=== PATIENT | male | born 1985 | race Caucasian/White ===

== ENCOUNTER 2023-07-09 19:00 | Emergency (ER) | payer OTHER, SELFPAY ==
[2023-07-09 19:34] VITALS: BP 135/88; PULSE 76; RESP 18; TEMP 37.1; O2SAT 97; BMI 30.2
--- NOTE | 2023-07-09 19:35 | ED_ITS ---
HPI - General Adult General Chief complaint: Skin/Abscess/Foreign Body Stated complaint: Finger swelling Time Seen by Provider: 07/09/23 19:35 Source: patient Mode of arrival: ambulatory Limitations: no limitations History of Present Illness HPI narrative: 37-year-old male previously healthy [id number] here with complaints of swelling, redness and drainage from the right hand 4th digit x 5-6 days. Unknown injury or trauma. Related Data Previous Rx's Medication Instructions Recorded cephalexin 500 mg capsule 500 mg PO TID #21 caps 07/09/23 Allergies Allergy/AdvReac Type Severity Reaction Status Date / Time No Known Allergies Allergy Unknown Unverified 03/25/20 15:32 Review of Systems Review of Systems: Yes all other systems are reviewed and are negative Constitutional: Constitutional: Reports no additional constitutional complaints, Denies body ache(s), Denies chills, Denies fever(s), Denies headache(s) and Denies weakness Eyes: Eyes: Reports no additional eye complaints and Denies change in vision ENT: Reports system reviewed and no additional complaints, except as document ed, Denies dizziness, Denies headache(s), Denies nasal congestion, Denies nasal discharge and Denies neck pain Cardiovascular: Cardiovascular: Reports no additional cardiovascular complaints, Denies chest pain, Denies leg edema and Denies dyspnea Respiratory: Respiratory: Reports no additional respiratory complaints, Denies cough and Denies dyspnea Gastrointestinal: Gastrointestinal: Reports no additional gastrointestinal complaints, Denies abdominal pain, Denies diarrhea, Denies nausea and Denies vomiting Genitourinary: Genitourinary: Denies urinary incontinence Musculoskeletal: Musculoskeletal: Reports no additional musculoskeletal complaints, Denies back pain, Denies arthralgias, Denies joint swelling, Denies neck pain, Denies numbness and Denies tingling Integumentary/Breasts: Skin/Breast: Reports system reviewed and no additional complaints, except as docu, Reports swelling, Reports erythema and Denies rash Neurologic: Reports system reviewed and no additional complaints, except as documented, Denies Abnormal speech present, Denies dizziness, Denies headache(s), Denies numbness, Denies tingling and Denies weakness PMFSH Past Medical History Attestation statement: The following information was validated with the patient. Source: old records reviewed and nursing notes reviewed Onset Date is defined in the Problem List Problems that require an onset date and time if occurred within 24 hrs of arrival to the ED Aortic Dissection and Rupture; Neurologic impairment; Cardiopulmonary Arrest; Endotracheal Intubation; Insertion or Replacement of Mechanical Circulatory Assist Device Physical Exam ED Vital Signs: Vital Signs - 24 hr 07/09/23 19:34 Temperature 98.7 F Pulse Rate 76 Respiratory Rate 18 Blood Pressure 135/88 Pulse Oximetry 97 Oxygen Delivery Method Room Air BMI result Body Mass Index 30.2 Const General: cooperative, healthy appearing, comfortable and no acute distress Orientation/consciousness: patient oriented x3 Limitations: no limitations HENMT Head: Yes normal to inspection Ears: hearing grossly normal bilaterally General nose exam: Normal external nose present Face and sinus: Yes normal facial exam Mouth: Normal oral and palatal mucosa present Throat: Yes posterior oropharynx normal Eyes General: appearance normal, both eyes and all related structures Pupils: Equal, round and reactive pupils present Neck Neck: Yes normal visual inspection Chest Chest palpation & inspection: normal inspection of the chest Resp Effort & Inspection: normal respiratory effort Auscultation: clear to auscultation bilaterally Cardio Rate: regular rate Rhythm: regular rhythm Peripheral pulses: Peripheral pulses 2+ throughout GI Inspection: Yes normal to inspection Palpation (GI): Soft to palpation and nontender Auscultation: normal bowel sounds Back/Spine/Pelvis Thoracic/Lumbar Spine: thoracic and lumbar spine normal to inspection Skin General skin exam: no rashes or lesions noted Neuro General: patient oriented x3, no focal motor deficits and normal sensation to monofilament Cranial nerves: Yes Equal, round and reactive pupils present Cognition (Neuro): normal cognition Speech: No Abnormal speech present Gait exam (Neuro): Normal gait present Motor exam (neuro): 5/5 motor strength present throughout Extrem Other: to the right hand the 4th digit along the medial aspect of the nail bed there is swelling, erythema and drainage noted. There is erythema and swelling circumferentially over the distal tip. There is full active and passive range of motion. Normal sensation. Medical Decision Making Medical Decision Making MDM Narrative: 37-year-old male previously healthy [id number] here with complaints of swelling, redness and drainage from the right hand 3rd digit x 5-6 days. Unknown injury or trauma. to the right hand the 4th digit along the medial aspect of the nail bed there is swelling, erythema and drainage noted. There is erythema and swelling circumferentially over the distal tip. There is full active and passive range of motion. Normal sensation. Exam consistent with paronychia. Patient will be recommended to start on oral antibiotic and do warm compresses at home. Reviewed worrisome signs and symptoms of when to return to the emergency room. Comfortable plan for d ischarge home Differential Diagnosis Differential Diagnoses: The differential diagnosis associated with the presentation includes paronychia low concern for tenosynovitis, septic joint, cellulitis Admission/Observation Consideration of admission/observation: Escalation of care including admission/observation considered low concern for tenosynovitis, septic joint, cellulitis requiring IV antibiotics and/or admission Prescription Management I considered prescription management with: Antibiotic Discharge Plan Discharge Clinical Impression: Paronychia of finger Patient Disposition: Home, Self-Care Instructions: Paronychia (ED) Additional Instructions: warm compresses or warm soaks 2-3 times daily Prescriptions: New cephalexin 500 mg capsule 500 mg PO TID Qty: 21 0RF Referrals: Physician,Mary J [Primary Care Provider] - 1 week
== END 2023-07-09 19:48 | disposition home or self-care (01) ==
PROVIDERS: Emergency Provider Emergency Medicine
DX: L03.011 Cellulitis of right finger (principal)
CPT/HCPCS: 99282; 99283